=== PATIENT | female | born 1990 | race American Indian/Alaskan Native ===

== ENCOUNTER 2017-03-01 01:06 | Emergency (ER) | payer MEDICAID ==
[2017-03-01 03:11] VITALS: BP 105/65
[2017-03-01 04:20] LABS: Anion Gap 11 mmol/L; Blood Urea Nitrogen 9 mg/dL (7-17); Calcium 9.1 mg/dL (8.4-10.2); Carbon Dioxide 25 mmol/L (22-30); Chloride 103.3 mmol/L (98-107); Glucose 86 mg/dL (65-100); Potassium 4.2 mmol/L (3.6-5.0); Sodium 135 mmol/L (137-145)
[2017-03-01 04:27] LABS: Bilirubin,Urine NEG (Negative); Blood,Urine SM (Negative); Ketones,Urine NEG (Negative); Leukocyte Esterase,Urine NEG (Negative); Mucus,Urine 3+ /HPF; Nitrite,Urine NEG (Negative)
[2017-03-01 04:29] LABS: Hemoglobin 11.7 gm/dl (10.1-14.3); White Blood Count 9.8 K/mm3 (4.5-11.0)
[2017-03-01 04:37] LABS: Hematocrit 35.9 % (30.3-42.9); Mean Corpuscular HGB Conc 32 % (30-34); Mean Corpuscular Hemoglobin 28 pg (28-32); Mean Corpuscular Volume 87 fl (79-97); Red Blood Count 4.16 M/mm3 (3.65-5.03)
[2017-03-01 04:38] LABS: Platelet Count 236 K/mm3 (140-440); Red Cell Distribution Width 13.1 % (13.2-15.2)
--- NOTE | 2017-03-01 06:20 | Emergency Department Report ---
Chief Complaint: Urogenital-Female Stated Complaint: STEPHANIE, UTI, POSS PREG Time Seen by Provider: 03/01/17 05:00 - HPI History of Present Illness: 27F PMH none p/w c/o x4 months w/out menses and c/o dysruia and vaginal spotting - ROS Review of Systems: possible , dysruia - Exam Vital Signs: Vital Signs 03/01/17 03:00 Temperature 98.6 F Pulse Rate 79 Respiratory 18 Rate Blood Pressure 105/65 O2 Sat by Pulse 100 Oximetry Physical Exam: + suprapubic discomfort MSE screening note: Focused history and physical exam performed. Due to findings the following was ordered: Screening Assessment/Plan/Differential Dx:, uti, vaginal bleeding, threatened AB 1- This initial assessment/diagnostic orders/clinical plan/ treatment(s) is/are subject to change based on pt's health status, clinical progression and re- assessment by fellow clinical providers in the ED. Further treatment and workup at subsequent clinical provers discretion. Patient/guardians urged not to elope from ED as their condition may be serious if not clinically assessed and managed. 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
--- NOTE | 2017-03-01 07:26 | Emergency Department Report ---
ED HPI - General Chief complaint: Urogenital-Female Stated complaint: STEPHANIE, UTI, POSS PREG Time Seen by Provider: 03/01/17 05:00 Source: patient Mode of arrival: Ambulatory Limitations: No Limitations - History of Present Illness Initial comments: This is a 27-year-old female well-nourished with nontoxic or ill in appearance that presents with dysuria and vaginal spotting x1 day. Patient stated she is unaware if she is or not. Patient denies any abdominal pain, pelvic pain, back pain, SOB, CP, bleeding, headache, n/v, numbness or tingling. Patient stated she has not had a menstrual cycle since 12/03/16. Patient also c/o of urinary frequency. Denies any past medical history of drug allergies. Patient stated currently does not have an OBGYN because she just moved her [place] a [place]. MD Complaint: other (dysuria and vaginal spottin x1 day) -: Gradual, days(s) (1) Radiation: none Associated symptoms: dysuria. denies: nausea/vomiting, vaginal bleeding, vaginal discharge, abdominal pain, headache, vision changes, malaise, dysparuenia, rash, seizure, shortness of breath, syncope, weakness Vaginal bleeding: other (spotting) :: Yes OB History - Current : other (unknown) OB History - Previous Pregnancies: miscarriage Last menstrual period: 12/03/16 Pre- care: none - Related Data : 3 Para: 1 Previous Rx's Medication Instructions Recorded Last Taken Type Nitrofurantoin [place]/M-Cryst 100 mg PO Q12HR 7 Days 03/01/17 Unknown Rx [Macrobid CAP] Vit-Fe Fumar-FA [ 1 tab PO QDAY #30 tablet 03/01/17 Unknown Rx Vitamin] Allergies Allergy/AdvReac Type Severity Reaction Status Date / Time No Known Allergies Allergy Verified 03/01/17 08:55 ED Review of Systems ROS: Stated complaint: STEPHANIE, UTI, POSS PREG Other details as noted in HPI Constitutional: denies: chills, fever Eyes: denies: eye pain, eye discharge, vision change ENT: denies: ear pain, throat pain Respiratory: denies: cough, shortness of breath, wheezing Cardiovascular: denies: chest pain, palpitations Endocrine: no symptoms reported Gastrointestinal: denies: abdominal pain, nausea, diarrhea Genitourinary: denies: urgency, dysuria, discharge Musculoskeletal: denies: back pain, joint swelling, arthralgia Skin: denies: rash, lesions Neurological: denies: headache, weakness, paresthesias Psychiatric: denies: anxiety, depression Hematological/Lymphatic: denies: easy bleeding, easy bruising ED Past Medical Hx - Past Medical History Previous Medical History?: No - Surgical History Past Surgical History?: Yes Additional Surgical History: Cone biopsy - Social History Smoking Status: Never Smoker - Medications Home Medications: Home Medications Medication Instructions Recorded Confirmed Last Taken Type Nitrofurantoin [place]/M-Cryst 100 mg PO Q12HR 7 Days 03/01/17 Unknown Rx [Macrobid CAP] Vit-Fe Fumar-FA [ 1 tab PO QDAY #30 tablet 03/01/17 Unknown Rx Vitamin] ED Physical Exam - General Limitations: No Limitations General appearance: alert, in no apparent distress - Head Head exam: Present: atraumatic, normocephalic, normal inspection - Eye Eye exam: Present: normal appearance, PERRL, EOMI. Absent: scleral icterus, conjunctival injection, nystagmus, periorbital swelling, periorbital tenderness Pupils: Present: normal accommodation - ENT ENT exam: Present: normal exam, normal orophraynx, mucous membranes moist, TM's normal bilaterally, normal external ear exam - Neck Neck exam: Present: normal inspection, full ROM. Absent: tenderness, meningismus, lymphadenopathy, thyromegaly - Respiratory Respiratory exam: Present: normal lung sounds bilaterally. Absent: respiratory distress - Cardiovascular Cardiovascular Exam: Present: regular rate, normal rhythm. Absent: systolic murmur, diastolic murmur, rubs, gallop - GI/Abdominal GI/Abdominal exam: Present: soft, normal bowel sounds. Absent: distended, tenderness, guarding, rebound, rigid, diminished bowel sounds, hyperactive bowel sounds, hypoactive bowel sounds, organomegaly, mass, bruit, pulsatile mass , hernia - Rectal Rectal exam: Present: deferred - External exam: Present: normal external exam, other (non-abscess right labia minora sac. 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 Patient denies any new changes to the area.). Absent: erythema , swelling, lesions, lacerations, ecchymosis, bleeding Speculum exam: Present: normal speculum exam. Absent: erythema, vaginal discharge, cervical discharge, vaginal bleeding, foreign body, tissue, laceration Bi-manual exam: Present: normal bi-manual exam. Absent: cervical motion tendernes, adnexal tenderness, adnexal mass, uterine enlargement, uterine tenderness - Expanded Exam Expanded External exam: Present: normal Speculum exam: Present: cervical OS closed. Absent: vaginal bleeding, vaginal discharge - Extremities Exam Extremities exam: Present: normal inspection, full ROM, normal capillary refill. Absent: tenderness, pedal edema, joint swelling, calf tenderness - Back Exam Back exam: Present: normal inspection. Absent: full ROM, tenderness, CVA tenderness (R), CVA tenderness (L), muscle spasm, paraspinal tenderness, vertebral tenderness, rash noted - Neurological Exam Neurological exam: Present: alert, oriented X3, CN II-XII intact, normal gait - Psychiatric Psychiatric exam: Present: normal affect, normal mood - Skin Skin exam: Present: warm, dry, intact, normal color. Absent: rash - Other Other exam information: During vaginal exam/speculum exam Maura CONNER circulation man present. ED Course Vital Signs 03/01/17 03:00 Temperature 98.6 F Pulse Rate 79 Respiratory 18 Rate Blood Pressure 105/65 O2 Sat by Pulse 100 Oximetry - Consultations Consultation #1: 03/01/17 08:44 Dr. Garcia was consulted. Agrees to the plan of care and d/c instructions. ED Medical Decision Making - Lab Data Result diagrams: 03/01/17 03:34 03/01/17 03:34 - Medical Decision Making Ed course: This is a 27-year-old female that presents with UTI and Positive 1- UA, gay, ultrasound pelvic and transvaginal us obtained. 2- A vaginal exam and speculum exam has been performed. Gonorrhea/chlamydia and wet prep has been obtained. 3- OB ultrasound confirms 13 weeks and 4 days of which correlates to quantitative hCG. There is a small subchorionic hemorrhage at the thenar region measuring 1.61.11.2 cm. Patient was notified of the findings and was instructed to follow up with her OB /CORSET FITTER in 24 hours. 4- patient is O+. 5- patient was instructed to observe symptoms of vaginal bleeding, pelvic pain, nausea, vomiting, chest pain, or shortness of breath and to report to emergency room as soon as possible. 6- at time time of discharge, the patient does not seem toxic or ill in appearance. No acute signs of distress noted. Patient agrees to discharge treatment plan of care. No further questions noted by the patient. 7-patient was instructed to call medical records in 3 to 5 days to obtain gonorrhea/chlamydia results Critical care attestation.: If time is entered above; I have spent that time in minutes in the direct care of this critically ill patient, excluding procedure time. ED Disposition Clinical Impression: Subchorionic hemorrhage in first trimester Qualifiers: Weeks of gestation: 13 weeks Qualified Code(s): Z3A.13 - 13 weeks gestation of UTI (urinary tract infection) Qualifiers: Urinary tract infection type: site unspecified Hematuria presence: with hematuria Qualified Code(s): N39.0 - Urinary tract infection, site not specified Disposition: - TO HOME OR SELFCARE Is pt being admited?: No Does the pt Need Aspirin: No Condition: Stable Instructions: (ED), Urinary Tract Infection in Women (ED), Dysuria ( ED) Additional Instructions: Return to [facility] in 3-5 days to obtain results of gonorrhea/media. Follow-up with your EXTRUDING MACHINE OPERATOR in 24 hours. If symptoms such as vaginal bleeding, chest pain, short of breath, numbness, tingling, abdominal pain, pelvic pain, dizziness or headache reported back to emergency room as soon as possible. Take full course of antibiotics as prescribed. Prescriptions: Nitrofurantoin U[place]/M-Cryst [Macrobid CAP] 100 mg PO Q12HR 7 Days Vit-Fe Fumar-FA [ Vitamin] 1 tab PO QDAY #30 tablet Referrals: PRIMARY CAREMD [Primary Care Provider] - 3-5 Days [facility] [Outside] - 3-[address] [facility] [Outside] - 3-5 Days BOZENA GARCIA MD [Staff Physician] - 24 Hours JASWANT GARCIA MD [Referring] - 24 Hours AMARA CARDOSO MD [Staff Physician] - 24 Hours ATIF IBARRA MD [Referring] - 24 Hours [facility] [Provider Group] - 24 Hours Forms: Work/School Release Form(ED)
--- NOTE | 2017-03-01 08:24 | Ultrasound Report ---
FINAL REPORT EXAM: US OB \T\lt; = 14 WEEKS FETUS HISTORY: vagional spotting with TECHNIQUE: Obstetrical ultrasound was performed. Transabdominal scanning. PRIORS: None. FINDINGS: position is breech. Placental location is posterior. There is no placenta previa seen. Amniotic fluid volume is normal. cardiac activity is identified, measured at 149 beats per minute. . There is a small subchorionic hemorrhage in the fundal region measuring 1.6 x 1.1 x 1.2 cm. Measurements: BPD: 2.19 cm-13 weeks 4 days FL: 0.89 cm-12 weeks 5 days Avg age by US: 13 weeks 1 day which corresponds to CAPRICE of 09/05/2017.age by provided LMP: 13 weeks 4 days corresponding to CAPRICE of 09/02/2017 Survey of anatomy: Complete survey of anatomy not performed, too early. Grossly no abnormality seen. There is a small cyst in the left ovary measuring about 2.2 cm. This may be a corpus luteal cyst. Otherwise no abnormal adnexal mass seen. IMPRESSION: There is a single live intrauterine gestation of approximately 13 weeks 1 day gestational age. This corresponds to CAPRICE of 09/05/2017. A small subchorionic hemorrhage noted.
[2017-03-01] MEDS ORDERED: PRENATAL VITAMIN PO ONE (08:53)
== END 2017-03-01 10:29 | disposition home or self-care (01) ==
LOC: ED 01:06
DX: O20.9 Hemorrhage in early pregnancy, unspecified (principal); O23.41 Unspecified infection of urinary tract in pregnancy, first trimester; Z3A.13 13 weeks gestation of pregnancy
CPT/HCPCS: 36415; 76801; 80048; 81001; 81025; 84702; 85027; 86850; 86900; 86901; 87086; 87210; 87591; 99284